=== PATIENT | male | born 1955 | race Caucasian/White ===

== ENCOUNTER 2017-01-02 22:43 | Emergency (ER) | payer OTHER ==
[~2017-01-02] VITALS: Ht 175.3 cm; Wt 95.3 kg
[2017-01-02] MEDS ORDERED: NITROSTAT0.4 M1 (22:50)
[2017-01-02] MEDS ORDERED: LIPITOR40 MG PO (22:51)
[2017-01-02] MEDS ORDERED: TOPROL XL25 MG PO (22:51)
[2017-01-02] MEDS ORDERED: ASPIR 8181 MG PO (22:51)
[2017-01-03] MEDS ORDERED: IBUPROFEN 800800 M1 PO (00:09)
[2017-01-03 00:45] VITALS: BP 119/74
== END 2017-01-03 00:46 | disposition home or self-care (01) ==
LOC: ER 22:43
DX: S63.502A Unspecified sprain of left wrist, initial encounter (principal); S46.912A Strain of unspecified muscle, fascia and tendon at shoulder and upper arm level, left arm, initial encounter; I10 Essential (primary) hypertension; J45.909 Unspecified asthma, uncomplicated; Z88.0 Allergy status to penicillin; W18.39XA Other fall on same level, initial encounter; Y93.89 Activity, other specified; Y92.89 Other specified places as the place of occurrence of the external cause; Y99.8 Other external cause status

== ENCOUNTER 2017-04-27 12:48 | Emergency (ER) | payer OTHER ==
[~2017-04-27] VITALS: Ht 175.3 cm; Wt 90.7 kg
[~2017-04-27 12:48] MED LIST: ASPIR 8181 MG PO; IBUPROFEN 800800 M1 PO; LIPITOR40 MG PO; NITROSTAT0.4 M1; TOPROL XL25 MG PO
[2017-04-27] MEDS ORDERED: IBUPROFEN 600600 M1 PO (15:01)
[2017-04-27] MEDS ORDERED: ULTRAM 50MG TAB50 MG PO (15:01)
== END 2017-04-27 15:11 | disposition home or self-care (01) ==
LOC: ER 12:48
DX: M25.511 Pain in right shoulder (principal); M79.641 Pain in right hand; I10 Essential (primary) hypertension; J45.909 Unspecified asthma, uncomplicated; Z88.0 Allergy status to penicillin

== ENCOUNTER 2019-03-17 16:57 | Emergency (ER) | payer OTHER ==
[~2019-03-17] VITALS: Ht 175.3 cm; Wt 95.3 kg
[~2019-03-17 16:57] MED LIST changes: +IBUPROFEN 600600 M1 PO; +ULTRAM 50MG TAB50 MG PO
[2019-03-17] MEDS ORDERED: AMLODIPINE BESY10 MG PO (17:11)
[2019-03-17 17:13] LABS: ABSOLUTE NEUTROPHILS 7.4 thou/uL (1.4-8.2); BASOPHILS 0.7 % (0.0-2.0); EOSINOPHILS 1.4 % (0.0-3.0); HEMATOCRIT 41.8 % (42.0-52.0); HEMOGLOBIN 14.1 gm/dL (14.0-18.0); LYMPHOCYTES 16.3 % (24.0-44.0); MCH 34.3 pg (26.0-34.0); MCHC 33.7 g/dL (28.0-37.0); MCV 101.9 fL (80.0-100.0); MONOCYTES 6.9 % (1.0-8.0); PLATELET COUNT 270 thou/uL (150-400); POLYS 74.7 % (36.0-66.0); RDW 12.8 % (10.5-14.5); WBC 9.9 thou/uL (4.0-11.0)
[2019-03-17 17:17] LABS: ANION GAP 10 mmol/L (7-16); BUN 17 mg/dL (7-18); CALCIUM 9.6 mg/dL (8.5-10.1); CHLORIDE 107 mmol/L (98-107); CO2 26 mmol/L (21-32); CREATININE 1.3 mg/dL (0.7-1.3); GLUCOSE 152 mg/dL (74-106); POTASSIUM 3.6 mmol/L (3.5-5.1); SODIUM 143 mmol/L (136-145)
[2019-03-17 17:27] LABS: ALBUMIN 3.7 g/dL (3.4-5.0); SGOT 19 U/L (15-37); SGPT 26 U/L (30-65); TOTAL BILIRUBIN 0.4 mg/dL (<0.1-1.0); TOTAL PROTEIN 7.4 g/dL (6.4-8.2); TROPONIN-I <0.06 ng/mL (<0.06)
[2019-03-17] MEDS ORDERED: PROTONIX40 MG PO (18:11)
[2019-03-17] MEDS ORDERED: ZOFRAN ODT4 MG PO (18:11)
[2019-03-17] MEDS ORDERED: CARAFATE 1 GM TA1 G1 PO (18:11)
[2019-03-17 19:03] VITALS: BP 106/68
--- NOTE | 2019-03-18 08:29 | EKG ---
[address] [place] [address] ELECTROCARDIOGRAM REPORT Name: MICHELLE ERWIN Room #: JENNA Herrera#: [id number] Admission: 03/17/19 Attend Phys: Discharge: 03/17/19 Date of : 55 Report #: [id number] THIS REPORT FOR: //name// [facility] ED Test Date: 2019-03-17 Test Time: 16:58:43 Pat Name: MICHELLE ERWIN Department: Room: Gender: [employer]: [facility] : 1955 Requested By: Sandra Lu Order Number: [id number] MD: Richard Pepe Measurements Intervals [place] Rate: 102 P: 59 IA: 166 QRS: 47 QRSD: 90 T: -76 QT: 308 QTc: 402 Interpretive Statements Sinus tachycardia Nonspecific ST segment abnormality No previous ECG available for comparison Electronically Signed On 03-18-2019 8:29:14 BUSINESS SOLUTIONS DIRECTOR by Richard Pepe [email or web address] <ELECTRONICALLY SIGNED> By: Richard Pepe MD, [facility] 03/18/19 0829 1658 1658 Richard Pepe MD, FACC /EPI
== END 2019-03-17 18:55 | disposition home or self-care (01) ==
LOC: ER 16:57
PROVIDERS: Physician Assistant
DX: R07.89 Other chest pain (principal); R11.2 Nausea with vomiting, unspecified; I10 Essential (primary) hypertension; J45.909 Unspecified asthma, uncomplicated; Z88.0 Allergy status to penicillin